=== PATIENT | male | born 1980 | race African-American/Black ===

== ENCOUNTER 2022-12-10 13:03 | Emergency (ER) | payer SELFPAY ==
[~2022-12-10] VITALS: Ht 182.9 cm; Wt 117.9 kg
[2022-12-10] MEDS ORDERED: ASPIRIN 325 MG TABLET PO ONE (14:00)
[2022-12-10] MEDS ORDERED: METOPROLOL TARTRATE 25 MG TABLET PO ONE (14:00)
[2022-12-10] MEDS ORDERED: ASPIRIN 325 MG TABLET ONE (14:01)
[2022-12-10] MEDS ORDERED: METOPROLOL TARTRATE 50 MG TABLET ONE (14:01)
[2022-12-10 14:06] LABS: BASOPHILS # (AUTO) 0.1 K/uL (0.0-0.2); BASOPHILS % (AUTO) 0.5 % (0.0-2.0); EOSINOPHILS % (AUTO) 1.8 % (0.0-6.0); HEMATOCRIT 43 % (39-51); HEMOGLOBIN 14.1 g/dL (13.5-17.5); LYMPHOCYTES % (AUTO) 29.8 % (20.0-44.0); MEAN CORPUSCULAR HGB CONC 33 g/dl (31.0-36.0); MEAN CORPUSCULAR VOLUME 85 fL (80-96); MONOCYTES # (AUTO) 0.7 K/uL (0.1-1.30); NEUTROPHILS # (AUTO) 6.1 K/uL (1.8-8.9); NEUTROPHILS % (AUTO) 60.9 % (43.0-81.0); PLATELET COUNT (AUTO) 276 K/uL (150-450); RED BLOOD CELL COUNT(AUTO) 5.08 MIL/uL (4.5-6.0)
[2022-12-10 14:26] LABS: CALCIUM, SERUM 10.5 mg/dL (8.5-10.1); CARBON DIOXIDE 28 mmol/L (21-32); CHLORIDE 103 mmol/L (98-107); CREATININE 1.4 mg/dL (0.6-1.3); GLUCOSE 112 mg/dL (74-106); POTASSIUM 3.4 mmol/L (3.5-5.1); SODIUM SERUM 139 mmol/L (136-145); UREA NITROGEN, BLOOD 25 mg/dL (7-18)
[2022-12-10] MEDS ORDERED: AMLO10TA4 PO (14:36)
[2022-12-10 15:45] VITALS: BP 138/80
[2022-12-10 15:57] LABS: EOSINOPHILS % (MANUAL) 1 % (0-4); LYMPHOCYTES % (MANUAL) 32 % (16-48); MONOCYTES % (MANUAL) 6 % (0-11.0); NEUTROPHILS % (MANUAL) 61 (42-76)
== END 2022-12-10 15:45 | disposition home or self-care (01) ==
LOC: ER 13:30
DX: R07.9 Chest pain, unspecified (principal); I10 Essential (primary) hypertension
CPT/HCPCS: 36415; 71045-TC; 80048-TC; 82962-TC; 84484-TC; 85025-TC